=== PATIENT | male | born 1960 | race Asian ===

== ENCOUNTER 2020-06-13 07:41 | Inpatient (IN) | payer OTHER ==
[~2020-06-13] VITALS: Ht 167.6 cm; Wt 79.1 kg
[2020-06-13] VITALS (14 sets, daily range): BP systolic 128–226; BP diastolic 61–112
--- NOTE | 2020-06-13 07:42 | Emergency Room Report ---
History of Present Illness General Source: Patient, EMS Present Illness HPI Patient is a 60-year-old male presented for increased shortness of breath. Acute onset of symptoms. Prior history of end-stage renal disease. Patient reports being dialyzed on Monday. Denies any chest pain. Reports having no recent fever. Patient was brought in on nonrebreather by paramedics. He had been given 0.30 mg of epinephrine subcu. Allergies: Coded Allergies: No Known Allergies (Unverified , 06/13/20) Patient History Past Medical History: see triage record Reviewed Nursing Documentation: PMH: Agreed; PSxH: Agreed Review of Systems All Other Systems: limited - Limited by patient's acuity. 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 Total critical care time excluding procedures approximately 45 minutes. Medical Decision Making Diagnostic Impression: Primary Impression: Respiratory distress Additional Impressions: Fluid overload Suspected 2019-nCoV infection Non-STEMI (non-ST elevated myocardial infarction) Paroxysmal A-fib Hypertension ER Course Patient presented for shortness of breath. Differential diagnosis include was not limited to fluid overload, pulmonary edema, coronavirus infection, pneumonia among others. Because of complexity of patient's case laboratory tests and imaging studies were ordered. Patient noted to have a acute distress. Patient was started on supplemental oxygen via nonrebreather and subsequently started on BiPAP. He was given nitroglycerin sublingual with some improvement in shortness of breath.Patient's chest x-ray showed cardiomegaly as well as dialysis access catheter with fluid in the fissure as well as vascular congestion and pulmonary edema. Right-sided infiltrate greater than left. Patient is also given IV Lasix. Patient will be hospitalized for further management of shortness of breath likely will require dialysis. Patient noted to be markedly improved after nitroglycerin.Patient was given IV antibiotics. Patient had prior history of hypertension is normally on hydralazine, amlodipine, Lasix as well as as well as medications for his prostate. Patient's white blood count was slightly elevated approximate 14,000 patient be hospitalized for further management of shortness of breath and uncontrolled. Coronavirus testing was sent. Patient had continued elevated blood pressure.Patient's troponin was elevated consistent with possible non-STEMI. His repeat troponin was noted to be somewhat lower than initial troponin suggesting subacute myocardial injury. Patient was started on IV antibiotics due to infiltrates on chest x-ray. Dr. Gordon Wright was contacted for inpatient management due to panel physician. Labs Test 06/13/20 07:35 06/13/20 07:45 06/13/20 08:08 White Blood Count 14.9 K/UL (4.8-10.8) Red Blood Count 3.84 M/UL (4.70-6.10) Hemoglobin 11.3 G/DL (14.2-18.0) Hematocrit 36.7 % (42.0-52.0) Mean Corpuscular Volume 95 FL (80-99) Mean Corpuscular Hemoglobin 29.5 PG (27.0-31.0) Mean Corpuscular Hemoglobin Concent 30.9 G/DL (32.0-36.0) Red Cell Distribution Width 13.4 % (11.6-14.8) Platelet Count 222 K/UL (150-450) Mean Platelet Volume 6.4 FL (6.5-10.1) Neutrophils (%) (Auto) 71.7 % (45.0-75.0) Lymphocytes (%) (Auto) 17.9 % (20.0-45.0) Monocytes (%) (Auto) 7.9 % (1.0-10.0) Eosinophils (%) (Auto) 1.8 % (0.0-3.0) Basophils (%) (Auto) 0.7 % (0.0-2.0) Arterial Blood pH 7.319 (7.350-7.450) Arterial Blood Partial Pressure CO2 43.6 mmHg (35.0-45.0) Arterial Blood Partial Pressure O2 202.5 mmHg (75.0-100.0) Arterial Blood HCO3 21.9 mmol/L (22.0-26.0) Arterial Blood Oxygen Saturation 98.1 % (95-100) Arterial Blood Base Excess -4.0 (-2-2) Jose Test Positive EKG Diagnostic Results Rate: tachycardiac - Sinus tachycardia rate of 103 Rhythm: NSR ST Segments: no acute changes Status: improved Disposition: ADMITTED INPATIENT Condition: Stable Naseem Sams MD Jun 13, 2020 07:42
[2020-06-13] MEDS ORDERED: ADALAT10 MG ORAL (07:45)
[2020-06-13] MEDS: Nitroglycerin Subl 0.4mg tab SL PRN ×4 (07:45→08:00)
--- NOTE | 2020-06-13 07:50 | NUR ---
ED Nurse Note: pt arrived from home for SOB. pt 85% RA. 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 pt arrived diaphoretic, SOB, retractions substernal, intercostal. pt A&Ox4, skin warm but mottled. pt has R subclavian permacath, dilaysis monday/monday. pt states he is still able to make urine. pt has 2 IV, blood, cultures, lactic, covid swab sent to lab. blood glucose check 131. ekg performed. pt given 4 nitro SL. pt on continuous cardiac/O2 monitor. pt placed on bipap.
[2020-06-13 08:09] LABS: BASOPHILS % (AUTO) 0.7 % (0.0-2.0); EOSINOPHILS % (AUTO) 1.8 % (0.0-3.0); HEMATOCRIT 36.7 % (42.0-52.0); HEMOGLOBIN 11.3 G/DL (14.2-18.0); LYMPHOCYTES % (AUTO) 17.9 % (20.0-45.0); MEAN CORPUSCULAR VOLUME 95 FL (80-99); MONOCYTES % (AUTO) 7.9 % (1.0-10.0); NEUTROPHILS % (AUTO) 71.7 % (45.0-75.0); PLATELET COUNT 222 K/UL (150-450); RED BLOOD COUNT 3.84 M/UL (4.70-6.10); RED CELL DISTRIBUTION WIDTH 13.4 % (11.6-14.8); WHITE BLOOD COUNT 14.9 K/UL (4.8-10.8)
--- NOTE | 2020-06-13 08:30 | Diagnostic Imaging Report ---
EXAM: XR Chest, 1 View CLINICAL HISTORY: SOB TECHNIQUE: Frontal view of the chest. COMPARISON: No relevant prior studies available. FINDINGS/IMPRESSION: Dual-lumen central venous catheter terminates at the cavoatrial junction/right atrium. Patchy bilateral airspace consolidations, which preferentially involve the right mid and lower lung field. Findings are consistent with multifocal infiltrate. Bilateral, small pleural effusions with superimposed pulmonary vascular congestion. No pneumothorax. Cardiomegaly. Calcified aorta.
[2020-06-13] MEDS ORDERED: ELIQUIS5 MG ORAL (08:33)
[2020-06-13] MEDS ORDERED: COREG3.125 MG ORAL (08:33)
[2020-06-13] MEDS ORDERED: FUROSEMIDE80 M1 ORAL (08:33)
[2020-06-13] MEDS ORDERED: FLOMAX0.4 MG ORAL (08:33)
[2020-06-13] MEDS ORDERED: HYDRALAZINE HCL10 MG ORAL (08:33)
[2020-06-13 08:43] LABS: CALCIUM 7.9 MG/DL (8.5-10.1); CREATININE 13.3 MG/DL (0.55-1.30); POTASSIUM 3.7 MMOL/L (3.5-5.1)
[2020-06-13] MEDS ORDERED: Azithromycin 500 MG in NS 275 ML IV ONE (08:45)
[2020-06-13] MEDS ORDERED: cefTRIAXone 1 GM in NS 55 ML IVPB ONE (08:45)
[2020-06-13 09:00] LABS: ALBUMIN 3.9 G/DL (3.4-5.0); BILIRUBIN,TOTAL 0.6 MG/DL (0.2-1.0); CKMB 4.1 NG/ML (0.0-3.6); PHOSPHORUS 4.9 MG/DL (2.5-4.9)
[2020-06-13] MEDS ORDERED: Aspirin Baby 81mg ORAL ONE (09:00)
--- NOTE | 2020-06-13 09:49 | NUR ---
ED Nurse Note: repeat trop sent to lab. pt on continuous cardiac/O2 monitor.
--- NOTE | 2020-06-13 10:36 | NUR ---
per dr coles downgrade patient to sdu and have dialysis stat dr hartman and nursing superviosor notified
--- NOTE | 2020-06-13 12:11 | NUR ---
ED Nurse Note: called report to Monika BARRAZA in [place].
--- NOTE | 2020-06-13 12:23 | Cardiology Report ---
APPROVED REPORT EKG Measurement Heart [id number] <Conclusion> Sinus tachycardia Right superior axis deviation Abnormal ECG
[2020-06-13] MEDS ORDERED: Nitroglycerin Subl 0.4mg tab SL PRN (13:00)
[2020-06-13] MEDS ORDERED: Miralax 17gm pkt ORAL PRN (13:00)
--- NOTE | 2020-06-13 13:00 | NUR ---
NURSE NOTES: Received patient from emergency room via gurney accompanied by RN alert and oriented X4. Denies any pain and discomfort. Per patient he missed his dialysis because of SOB. Patient ambulatory with steady gait. Seen and examine by Dr. Wright at bedside. All orders noted and carried out.
[2020-06-13] MEDS: Tamsulosin 0.4mg cap ORAL SCH (14:00)
[2020-06-13] MEDS: Carvedilol 12.5mg tab ORAL SCH ×2 (14:01→21:00)
[2020-06-13 14:34] LABS: HEMATOCRIT 30.1 % (42.0-52.0); HEMOGLOBIN 9.3 G/DL (14.2-18.0); MEAN CORPUSCULAR VOLUME 95 FL (80-99); PLATELET COUNT 165 K/UL (150-450); RED BLOOD COUNT 3.16 M/UL (4.70-6.10); RED CELL DISTRIBUTION WIDTH 13.5 % (11.6-14.8); WHITE BLOOD COUNT 10.4 K/UL (4.8-10.8)
[2020-06-13] MEDS: Aspirin EC 81mg tab ORAL SCH (14:35)
[2020-06-13] MEDS ORDERED: Heparin 5000 units/ml inj IV SCH (14:45)
[2020-06-13] MEDS ORDERED: Heparin 25,000u/D5W 500ml 500 ML IV SCH (14:45)
[2020-06-13 14:54] LABS: CREATINE KINASE 272 U/L (26-308)
--- NOTE | 2020-06-13 14:59 | NUR ---
NURSE NOTES: Started on heparin drip per [facility] protocol. Given educational instruction.Ptt ordered at 2100.
--- NOTE | 2020-06-13 15:29 | History and Physical Report ---
DATE OF ADMISSION: 06/13/2020 CHIEF COMPLAINT AND REASON FOR HOSPITALIZATION: The patient is a 60-year-old man with end-stage renal disease, on dialysis, presents with shortness of breath and elevated troponin. HISTORY OF PRESENT ILLNESS: The patient has been on dialysis via catheter, usually takes out about 1.5 liters of fluid each time, presents with increasing shortness of breath since last night. He has had elevated troponin too. The patient has a history of end-stage renal disease, hypertension, BPH. ALLERGIES: None known. HOME MEDICATIONS: Apixaban, carvedilol, furosemide, hydralazine, nifedipine, tamsulosin. HABITS: He was an everyday smoker until about fall when he quit. SURGERIES: Dialysis catheter. SYSTEM REVIEW: HEAD, EYES, EARS, NOSE, AND THROAT: Vision and hearing is good. ENDOCRINE: No known diabetes or thyroid disease. PULMONARY: No asthma or TB. He is a former smoker. CARDIAC: See history of present illness. No prior chest pain or CHF. GASTROINTESTINAL: No GI bleeding or ulcers. GENITOURINARY: No dysuria, hematuria. NEUROLOGIC: No CVA or seizures. PHYSICAL EXAMINATION: GENERAL: The patient is an alert man, in no acute distress. VITAL SIGNS: Blood pressure 177/76, pulse 71, respirations 21, O2 sat 91 to 100. HEAD, EYES, EARS, NOSE, AND THROAT: Sclerae are nonicteric. Ocular motions intact in all directions. Oral mucosa moist. NECK: No adenopathy or thyroid enlargement. LUNGS: A few fine crackles at the bases. CHEST: She has a right PermCath. HEART: Regular rhythm. No murmur, gallop, or rub. ABDOMEN: Soft without organomegaly or masses. EXTREMITIES: 1+ leg edema. No cyanosis or clubbing NEUROLOGIC: He is alert, oriented. No focal findings. LABORATORY DATA: Important labs show white count of 14.9, hemoglobin 11.3, potassium 3.7, BUN 89, troponin 2.019, BNP 26,469. IMPRESSION: 1. End-stage renal disease. 2. Acute [id number] myocardial infarction. 3. Congestive heart failure, acute on chronic. 4. Hypertensive cardiovascular , on multiple medications. PLAN: Urgent dialysis, fluid removal, anti-ischemic therapy. Gordon Wright M.D. DR: DANIEL JOB#: [id number] CC:
--- NOTE | 2020-06-13 16:45 | Cardiac Electrophysiology PN ---
Subjective Subjective [id number] Objective Last 24 Hour Vital Signs Date Time Temp Pulse Resp B/P (MAP) Pulse Ox O2 Delivery O2 Flow Rate FiO2 06/13/20 14:02 70 151/78 06/13/20 14:01 70 151/78 06/13/20 13:15 Nasal Cannula 1.0 06/13/20 12:41 97.7 70 18 151/78 (102) 92 06/13/20 12:12 71 21 177/76 100 Room Air 06/13/20 12:00 97.6 65 21 162/88 100 Bi-pap 15.0 55 06/13/20 10:54 65 21 162/88 100 Bi-pap 06/13/20 10:35 86 24 100 55 06/13/20 10:27 69 19 167/83 100 Bi-pap 55 06/13/20 09:48 78 21 180/74 100 Bi-pap 70 06/13/20 09:06 222/111 06/13/20 08:50 89 27 222/99 100 Bi-pap 06/13/20 08:45 90 25 216/94 100 Bi-pap 06/13/20 08:38 70 06/13/20 08:31 86 27 90 90 06/13/20 08:05 90 23 179/88 100 Non-Rebreather 15.0 06/13/20 08:00 91 26 205/90 100 Non-Rebreather 15.0 06/13/20 08:00 205/99 06/13/20 07:55 96 31 199/97 100 Non-Rebreather 15.0 06/13/20 07:55 199/97 06/13/20 07:51 99 31 210/108 100 Non-Rebreather 15.0 06/13/20 07:50 99 31 Bi-pap 15.0 100 06/13/20 07:50 210/108 06/13/20 07:45 97.6 105 30 226/112 99 Non-Rebreather 15.0 06/13/20 07:45 226/112 06/13/20 07:38 97.9 115 26 148/115 (126) 90 Room Air Laboratory Tests Test 06/13/20 07:35 06/13/20 07:45 06/13/20 08:08 06/13/20 09:43 Troponin I 2.019 ng/mL (0.000-0.056) 1.873 ng/mL (0.000-0.056) White Blood Count 14.9 K/UL (4.8-10.8) H Red Blood Count 3.84 M/UL (4.70-6.10) L Hemoglobin 11.3 G/DL (14.2-18.0) L Hematocrit 36.7 % (42.0-52.0) L Mean Corpuscular Volume 95 FL (80-99) Mean Corpuscular Hemoglobin 29.5 PG (27.0-31.0) Mean Corpuscular Hemoglobin Concent 30.9 G/DL (32.0-36.0) L Red Cell Distribution Width 13.4 % (11.6-14.8) Platelet Count 222 K/UL (150-450) Mean Platelet Volume 6.4 FL (6.5-10.1) L Neutrophils (%) (Auto) 71.7 % (45.0-75.0) Lymphocytes (%) (Auto) 17.9 % (20.0-45.0) L Monocytes (%) (Auto) 7.9 % (1.0-10.0) Eosinophils (%) (Auto) 1.8 % (0.0-3.0) Basophils (%) (Auto) 0.7 % (0.0-2.0) Prothrombin Time 10.7 SEC (9.30-11.50) Prothromb Time International Ratio 1.0 (0.9-1.1) Activated Partial Thromboplast Time 33 SEC (23-33) D-Dimer 0.87 mg/L FEU (0.00-0.49) H Sodium Level 143 MMOL/L (136-145) Potassium Level 3.7 MMOL/L (3.5-5.1) Chloride Level 103 MMOL/L (98-107) Carbon Dioxide Level 23 MMOL/L (21-32) Anion Gap 17 mmol/L (5-15) H Blood Urea Nitrogen 89 mg/dL (7-18) H Creatinine 13.3 MG/DL (0.55-1.30) H Estimat Glomerular Filtration Rate 3.9 mL/min (>60) Glucose Level 173 MG/DL (74-106) H Lactic Acid Level 1.90 mmol/L (0.4-2.0) Calcium Level 7.9 MG/DL (8.5-10.1) L Phosphorus Level 4.9 MG/DL (2.5-4.9) Magnesium Level 2.4 MG/DL (1.8-2.4) Ferritin 1322 NG/ML (8-388) H Total Bilirubin 0.6 MG/DL (0.2-1.0) Aspartate Amino Transf (AST/SGOT) 16 U/L (15-37) Alanine Aminotransferase (ALT/SGPT) 20 U/L (12-78) Alkaline Phosphatase 67 U/L (46-116) Lactate Dehydrogenase 318 U/L (81-234) H Total Creatine Kinase 261 U/L (26-308) Creatine Kinase MB 4.1 NG/ML (0.0-3.6) H Creatine Kinase MB Relative Index 1.5 C-Reactive Protein, Quantitative 1.4 mg/dL (0.00-0.90) H Pro-B-Type Natriuretic Peptide 65386 pg/mL (0-125) H Total Protein 7.9 G/DL (6.4-8.2) Albumin 3.9 G/DL (3.4-5.0) Globulin 4.0 g/dL Albumin/Globulin Ratio 1.0 (1.0-2.7) Lipase 358 U/L (73-393) Arterial Blood pH 7.319 (7.350-7.450) Arterial Blood Partial Pressure CO2 43.6 mmHg (35.0-45.0) Arterial Blood Partial Pressure O2 202.5 mmHg (75.0-100.0) H Arterial Blood HCO3 21.9 mmol/L (22.0-26.0) L Arterial Blood Oxygen Saturation 98.1 % (95-100) Arterial Blood Base Excess -4.0 (-2-2) L Jose Test Positive Test 06/13/20 14:20 White Blood Count 10.4 K/UL (4.8-10.8) Red Blood Count 3.16 M/UL (4.70-6.10) L Hemoglobin 9.3 G/DL (14.2-18.0) L Hematocrit 30.1 % (42.0-52.0) L Mean Corpuscular Volume 95 FL (80-99) Mean Corpuscular Hemoglobin 29.4 PG (27.0-31.0) Mean Corpuscular Hemoglobin Concent 30.9 G/DL (32.0-36.0) L Red Cell Distribution Width 13.5 % (11.6-14.8) Platelet Count 165 K/UL (150-450) Mean Platelet Volume 6.2 FL (6.5-10.1) L Neutrophils (%) (Auto) % (45.0-75.0) Lymphocytes (%) (Auto) % (20.0-45.0) Monocytes (%) (Auto) % (1.0-10.0) Eosinophils (%) (Auto) % (0.0-3.0) Basophils (%) (Auto) % (0.0-2.0) Differential Total Cells Counted 100 Neutrophils % (Manual) 90 % (45-75) H Lymphocytes % (Manual) 4 % (20-45) L Monocytes % (Manual) 6 % (1-10) Eosinophils % (Manual) 0 % (0-3) Basophils % (Manual) 0 % (0-2) Band Neutrophils 0 % (0-8) Platelet Estimate Adequate Platelet Morphology Normal Hypochromasia 1+ Activated Partial Thromboplast Time 32 SEC (23-33) Total Creatine Kinase 272 U/L (26-308) Imtiaz Roblero MD Jun 13, 2020 16:45
[2020-06-13] MEDS: Imdur 30mg tab ORAL SCH (17:24)
[2020-06-13] MEDS: Losartan 50mg tab ORAL SCH (17:25)
--- NOTE | 2020-06-13 19:06 | NUR ---
NURSE HAND-OFF REPORT: Important Events on Shift:none Patient Status: full code Diet: renal diet Pending Orders: Pending Results/Labs: Pending MD notification: Latest Vital Signs: Temperature 97.7 , Pulse 69 , B/P 136 /79 , Respiratory Rate 20 , O2 SAT 99 , Room Air, O2 Flow Rate 1.0 . Vital Sign Comment: EKG Rhythm: Sinus Rhythm Rhythm change?: N MD Notified?: - MD Response: Latest Pimentel Fall Score: 35 Fall Risk: Medium Risk Safety Measures: Call light Within Reach, Bed Alarm Zone 1, Side Rails Side Rails x1, Bed position Low and Locked. Fall Precautions: Yellow Socks Door Sign Patient Fall Education Report given to Abigail Amador.
--- NOTE | 2020-06-13 19:20 | NUR ---
NURSE NOTES: Received patient from Monika Chávez RN. Patient in bed A/A/OX4 Respiration even and unlabored on RA saturating at 96%Denies pain or discomfort. NSR on monitoring manager. Ambulating to bathroom slowly but steady on feet. Voiding clear yellow urine. In no apparent distress. Bed in lowest position with side rails up x2. Will continue POC
--- NOTE | 2020-06-13 21:44 | Consultation ---
DATE OF CONSULTATION: 06/13/2020 CARDIOLOGY CONSULTATION CONSULTING PHYSICIAN: Imtiaz Roblero M.D. REFERRING PHYSICIAN: Gordon Wright M.D. REASON FOR CONSULTATION: Congestive heart failure and elevated troponin. HISTORY OF PRESENT ILLNESS: The patient is a 60-year-old gentleman with history of hypertension and end-stage renal disease, was brought to the emergency room for increasing shortness of breath. The patient is usually dialyzed on Monday, Monday, and Monday. The patient was brought in by paramedics on non-rebreather face mask. The patient received 0.3 mg of epinephrine subcutaneous. The patient's troponin was elevated and a Cardiology consultation was obtained for further evaluation. REVIEW OF SYSTEMS: Negative other than what was mentioned in the history of present illness. PAST MEDICAL HISTORY: 1. Hypertension. 2. Paroxysmal atrial fibrillation. 3. Congestive heart failure. 4. End-stage renal disease, on hemodialysis. PHYSICAL EXAMINATION: VITAL SIGNS: Show blood pressure of 151/78, pulse is 70, respirations 18, and temperature 97.7. HEAD AND NECK: Shows no JVD. LUNGS: Coarse rhonchi. CARDIOVASCULAR: Shows regular S1 and S2 with no gallop. ABDOMEN: Soft. EXTREMITIES: No pitting edema. LABORATORY AND DIAGNOSTIC DATA: His labs show white count of 10.4, hemoglobin 9.7, hematocrit of 30, and platelet count is 165,000. Sodium 142, potassium 3.7, BUN of 89, creatinine of 13.3, and glucose of 170. Troponin is 2.0 and 1.73. BNP is 26,000. ASSESSMENT AND PLAN: 1. Elevated troponin more than 2 in this patient with history of hypertension. The patient however has end-stage renal disease, on hemodialysis. The patient currently does not have any chest pain. His echocardiogram showed ejection fraction of 60%. His EKG also shows sinus rhythm with lateral T-wave inversion. At this time, we will treat the patient for non-ST elevation [place] with Lipitor 80 mg daily, Imdur 30 mg daily, aspirin 81 mg daily, and Coreg 12.5 mg b.i.d. 2. Hypertension. Continue Coreg, Isordil, and hemodialysis as well as Procardia XL 90 mg daily. 3. Volume overload with congestive heart failure. Echocardiogram showed normal ejection fraction. It is of note that the patient is also on losartan 100 mg daily. 4. End-stage renal disease, on hemodialysis per Dr. Wright. Thank you very much for allowing me to participate in the care of this patient. Please do not hesitate to contact me for any questions regarding my evaluation. Imtiaz Roblero M.D. DR: STEVEN JOB#: [id number] CC:
--- NOTE | 2020-06-13 23:00 | NUR ---
NURSE NOTES: HD in progress.
[2020-06-13] MEDS: Atorvastatin 80mg tab ORAL SCH (23:30)
[2020-06-14] VITALS: BP 127/64
[2020-06-14 04:00] VITALS: BP 137/83
--- NOTE | 2020-06-14 05:00 | NUR ---
NURSE NOTES: Patient still sleeping at this time. Easily verbally awakened. Respirations even and unlabored. Denies pain or discomfort. VSS Afebrile. In no apparent distress. Remain NSR on cardiac tech. No new orders noted.
[2020-06-14 06:59] LABS: BASOPHILS % (AUTO) 0.8 % (0.0-2.0); EOSINOPHILS % (AUTO) 2.1 % (0.0-3.0); HEMATOCRIT 27.1 % (42.0-52.0); HEMOGLOBIN 8.6 G/DL (14.2-18.0); LYMPHOCYTES % (AUTO) 20.9 % (20.0-45.0); MEAN CORPUSCULAR VOLUME 94 FL (80-99); MONOCYTES % (AUTO) 10.5 % (1.0-10.0); NEUTROPHILS % (AUTO) 65.7 % (45.0-75.0); PLATELET COUNT 155 K/UL (150-450); RED BLOOD COUNT 2.87 M/UL (4.70-6.10); RED CELL DISTRIBUTION WIDTH 13.6 % (11.6-14.8); WHITE BLOOD COUNT 7.2 K/UL (4.8-10.8)
[2020-06-14 07:31] LABS: ANION GAP 11 mmol/L (5-15); BLOOD UREA NITROGEN 54 mg/dL (7-18); CALCIUM 7.8 MG/DL (8.5-10.1); CARBON DIOXIDE 29 MMOL/L (21-32); CHLORIDE 105 MMOL/L (98-107); CHOLESTEROL 135 MG/DL (< 200); CREATININE 9.3 MG/DL (0.55-1.30); HDL CHOLESTEROL 55 MG/DL (40-60); POTASSIUM 3.1 MMOL/L (3.5-5.1); SODIUM 145 MMOL/L (136-145); TRIGLYCERIDES 83 MG/DL (30-150)
--- NOTE | 2020-06-14 08:00 | NUR ---
NURSE NOTES: Received patient awake alert and oriented denies any pain discomfort. On heparin drip @ 12 units running at 18.94ml/hr. No bleeding noted.
[2020-06-14 08:19] VITALS: BP 130/61
[2020-06-14] MEDS: Tamsulosin 0.4mg cap ORAL SCH (08:23)
[2020-06-14] MEDS: Losartan 50mg tab ORAL SCH (08:23)
[2020-06-14] MEDS: Aspirin EC 81mg tab ORAL SCH (08:23)
[2020-06-14] MEDS: Carvedilol 12.5mg tab ORAL SCH ×2 (08:23→20:31)
[2020-06-14] MEDS: Imdur 30mg tab ORAL SCH (08:23)
[2020-06-14] MEDS ORDERED: Heparin 5000 units/ml inj IV SCH (11:00)
[2020-06-14] MEDS: Heparin 25,000u/D5W 500ml 500 ML IV SCH ×2 (11:10→15:56)
--- NOTE | 2020-06-14 11:10 | NUR ---
NURSE NOTES: Aptt 44. Bolus 6500 IV of heparin given and changed heparin at 16 units/hr. Next aptt. 1600. No bleeding noted.
[2020-06-14 12:00] VITALS: BP 131/63
[2020-06-14] MEDS ORDERED: Heparin Sod 1000 units/ml 10ml IV ONE (13:00)
--- NOTE | 2020-06-14 15:28 | Cardiac Electrophysiology PN ---
Assessment/Plan Assessment/Plan 1. Elevated troponin more than 2 in this patient with history of hypertension. The patient however has end-stage renal disease, on hemodialysis. The patient currently does not have any chest pain. His echocardiogram showed ejection fraction of 60%. His EKG also shows sinus rhythm with lateral T-wave inversion. At this time, we will treat the patient for non-ST elevation [place] with Lipitor 80 mg daily, Imdur 30 mg daily, aspirin 81 mg daily, and Coreg 12.5 mg b.i.d. Repeat Troponin and ECG in am. 2. Hypertension. Continue Coreg, Isordil, losartan 100 mg daily, Procardia XL 90 mg daily and HD 3. Volume overload with congestive heart failure. Echocardiogram showed normal ejection fraction. 4. End-stage renal disease, on hemodialysis per Dr. Wright. Subjective Subjective Being ruled out for Covid on 2 liter NC. Troponin increased to 2.5. On heparin drip. No CP Objective Last 24 Hour Vital Signs Date Time Temp Pulse Resp B/P (MAP) Pulse Ox O2 Delivery O2 Flow Rate FiO2 06/14/20 12:00 98.5 64 21 131/63 (85) 94 06/14/20 12:00 64 06/14/20 08:59 74 06/14/20 08:56 Nasal Cannula 1.0 06/14/20 08:23 130/61 06/14/20 08:23 130/61 06/14/20 08:23 70 130/61 06/14/20 08:22 70 130/61 06/14/20 08:19 98.1 70 18 130/61 (84) 93 06/14/20 04:00 97.7 72 18 137/83 (101) 92 06/14/20 04:00 66 06/14/20 04:00 Nasal Cannula 1.0 06/14/20 01:00 98.1 06/14/20 00:00 73 06/14/20 00:00 Nasal Cannula 1.0 06/14/20 00:00 98.1 69 18 127/64 (85) 94 06/13/20 21:00 60 128/61 06/13/20 20:00 97.9 60 18 128/61 (83) 96 06/13/20 20:00 Nasal Cannula 1.0 06/13/20 17:49 69 06/13/20 17:25 136/79 06/13/20 17:24 136/79 06/13/20 16:47 97.7 72 20 136/79 (98) 99 06/13/20 16:30 Nasal Cannula 1.0 Intake and Output 06/13/20 06/14/20 19:00 07:00 Intake Total 81.315 ml 189.840 ml Output Total 1000 ml 2500 ml Balance -918.685 ml -2310.160 ml Intake Oral 0 ml IV Total 81.315 ml 189.840 ml Output Urine Total 1000 ml 500 ml Hemodialysis UF 2000 ml Laboratory Tests Test 06/13/20 20:53 06/14/20 04:14 06/14/20 09:00 06/14/20 15:00 Activated Partial Thromboplast Time 65 SEC (23-33) H 44 SEC (23-33) H White Blood Count 7.2 K/UL (4.8-10.8) Red Blood Count 2.87 M/UL (4.70-6.10) L Hemoglobin 8.6 G/DL (14.2-18.0) L Hematocrit 27.1 % (42.0-52.0) L Mean Corpuscular Volume 94 FL (80-99) Mean Corpuscular Hemoglobin 30.0 PG (27.0-31.0) Mean Corpuscular Hemoglobin Concent 31.8 G/DL (32.0-36.0) L Red Cell Distribution Width 13.6 % (11.6-14.8) Platelet Count 155 K/UL (150-450) Mean Platelet Volume 6.4 FL (6.5-10.1) L Neutrophils (%) (Auto) 65.7 % (45.0-75.0) Lymphocytes (%) (Auto) 20.9 % (20.0-45.0) Monocytes (%) (Auto) 10.5 % (1.0-10.0) H Eosinophils (%) (Auto) 2.1 % (0.0-3.0) Basophils (%) (Auto) 0.8 % (0.0-2.0) Sodium Level 145 MMOL/L (136-145) Potassium Level 3.1 MMOL/L (3.5-5.1) L Chloride Level 105 MMOL/L (98-107) Carbon Dioxide Level 29 MMOL/L (21-32) Anion Gap 11 mmol/L (5-15) Blood Urea Nitrogen 54 mg/dL (7-18) H Creatinine 9.3 MG/DL (0.55-1.30) H Estimat Glomerular Filtration Rate 5.8 mL/min (>60) Glucose Level 86 MG/DL (74-106) Calcium Level 7.8 MG/DL (8.5-10.1) L Troponin I 2.536 ng/mL (0.000-0.056) Pending Triglycerides Level 83 MG/DL (30-150) Cholesterol Level 135 MG/DL (< 200) LDL Cholesterol 72 mg/dL (<100) HDL Cholesterol 55 MG/DL (40-60) Cholesterol/HDL Ratio 2.5 (3.3-4.4) L Thyroid Stimulating Hormone (TSH) 0.570 uiU/mL (0.358-3.740) Hepatitis B Surface Antigen Pending Objective HEAD AND NECK: Shows no JVD. LUNGS: Coarse rhonchi. CARDIOVASCULAR: Shows regular S1 and S2 with no gallop. ABDOMEN: Soft. EXTREMITIES: No pitting edema. Imtiaz Roblero MD Jun 14, 2020 15:28
[2020-06-14 16:16] VITALS: BP 129/70
[2020-06-14] MEDS ORDERED: Heparin 25,000u/D5W 500ml 500 ML IV SCH (18:15)
--- NOTE | 2020-06-14 18:15 | Nephrology Progress Note ---
Assessment/Plan Plan #ESRD on HD #Elevated troponin #NSTEMI #HTN #volume overload - HD tomorrow - heparin drip - serial trop - 2d echo - cardiology eval - continue coreg - monitor lytes - BP control Tiime spent 65 min Subjective ROS Limited/Unobtainable: No Constitutional: Reports: weakness HEENT: Denies: no symptoms, eye pain, blurred vision, tearing, double vision, ear pain, ear discharge, nose pain, nose congestion, throat pain, throat swelling, mouth pain, mouth swelling, other Genitourinary: Denies: no symptoms, burning, discharge, frequency, flank pain, hematuria, incontinence, pain, urgency, other Neurologic/Psychiatric: Denies: no symptoms, anxiety, depressed, emotional problems, headache, numbness, paresthesia, pre-existing deficit, seizure, tingling, tremors, weakness, other Subjective no chest pain troponin rising on heparin drip HD tomorow Objective Objective Last 24 Hour Vital Signs Date Time Temp Pulse Resp B/P (MAP) Pulse Ox O2 Delivery O2 Flow Rate FiO2 06/14/20 16:16 97.2 64 20 129/70 (89) 93 06/14/20 16:15 Nasal Cannula 1.0 06/14/20 16:09 70 06/14/20 12:00 98.5 64 21 131/63 (85) 94 06/14/20 12:00 Nasal Cannula 1.0 06/14/20 12:00 64 06/14/20 08:59 74 06/14/20 08:56 Nasal Cannula 1.0 06/14/20 08:23 130/61 06/14/20 08:23 130/61 06/14/20 08:23 70 130/61 06/14/20 08:22 70 130/61 06/14/20 08:19 98.1 70 18 130/61 (84) 93 06/14/20 04:00 97.7 72 18 137/83 (101) 92 06/14/20 04:00 66 06/14/20 04:00 Nasal Cannula 1.0 06/14/20 01:00 98.1 06/14/20 00:00 73 06/14/20 00:00 Nasal Cannula 1.0 06/14/20 00:00 98.1 69 18 127/64 (85) 94 06/13/20 21:00 60 128/61 06/13/20 20:00 97.9 60 18 128/61 (83) 96 06/13/20 20:00 Nasal Cannula 1.0 Intake and Output 06/13/20 06/14/20 19:00 07:00 Intake Total 81.315 ml 189.840 ml Output Total 1000 ml 2500 ml Balance -918.685 ml -2310.160 ml Intake Oral 0 ml IV Total 81.315 ml 189.840 ml Output Urine Total 1000 ml 500 ml Hemodialysis UF 2000 ml Laboratory Tests 06/13/20 20:53: Activated Partial Thromboplast Time 65H 06/14/20 04:14: White Blood Count 7.2, Red Blood Count 2.87L, Hemoglobin 8.6L, Hematocrit 27.1L, Mean Corpuscular Volume 94, Mean Corpuscular Hemoglobin 30.0, Mean Corpuscular Hemoglobin Concent 31.8L, Red Cell Distribution Width 13.6, Platelet Count 155, Mean Platelet Volume 6.4L, Neutrophils (%) (Auto) 65.7, Lymphocytes (%) (Auto) 20.9, Monocytes (%) (Auto) 10.5H, Eosinophils (%) (Auto) 2.1, Basophils (%) (Auto) 0.8, Sodium Level 145, Potassium Level 3.1L, Chloride Level 105, Carbon Dioxide Level 29, Anion Gap 11, Blood Urea Nitrogen 54H, Creatinine 9.3H, Estimat Glomerular Filtration Rate 5.8, Glucose Level 86, Calcium Level 7.8L, Troponin I 2.536H, Triglycerides Level 83, Cholesterol Level 135, LDL Cholesterol 72, HDL Cholesterol 55, Cholesterol/HDL Ratio 2.5L, Thyroid Stimulating Hormone (TSH) 0.570, Hepatitis B Surface Antigen [Pending] 06/14/20 09:00: Activated Partial Thromboplast Time 44H 06/14/20 15:00: Troponin I 2.379H 06/14/20 17:30: Activated Partial Thromboplast Time 99H Height (Feet): 5 Height (Inches): 6.00 Weight (Pounds): 168 General Appearance: no apparent distress EENT: PERRL/EOMI, normal ENT inspection Neck: non-tender, normal alignment Cardiovascular: normal peripheral pulses, regular rhythm Respiratory/Chest: chest wall non-tender, lungs clear Abdomen: normal bowel sounds, non tender Genitourinary/Rectal: normal rectal exam Extremities: non-tender Deborah Drake M.D. Jun 14, 2020 18:09
--- NOTE | 2020-06-14 18:21 | NUR ---
NURSE NOTES: Aptt 99. Changed rate 14 units/hr. No sign and symptoms of bleeding.
--- NOTE | 2020-06-14 19:02 | NUR ---
NURSE HAND-OFF REPORT: Important Events on Shift:n Patient Status:full code Diet: renal diet Pending Orders:none Pending Results/Labs:y Pending MD notification:n Latest Vital Signs: Temperature 97.2 , Pulse 64 , B/P 129 /70 , Respiratory Rate 20 , O2 SAT 93 , Room Air, O2 Flow Rate 1.0 . Vital Sign Comment:stable EKG Rhythm: Sinus Rhythm Rhythm change?: N MD Notified?: - MD Response: Latest Pimentel Fall Score: 35 Fall Risk: Medium Risk Safety Measures: Call light Within Reach, Bed Alarm Zone 1, Side Rails Side Rails x1, Bed position Low and Locked. Fall Precautions: Yellow Socks Door Sign Patient Fall Education Report given to Tina PATTON.
--- NOTE | 2020-06-14 19:05 | NUR ---
NURSE NOTES: Received pt in bed, awake, alert, oriented, on room air not showing any signs of distress. Left hand #20 intact with Heparin infusing at 14cc/hr. Permacath on right chest intact,. Pt denies any chest pain or any discomfort. Pt independent and is able to ambulate to the bathronn with steady gait. VSS and pt is SR on the monitor.
[2020-06-14 20:00] VITALS: BP 139/76
[2020-06-14] MEDS: Atorvastatin 80mg tab ORAL SCH (20:31)
[2020-06-15] VITALS: BP 131/64
--- NOTE | 2020-06-15 | NUR ---
NURSE NOTES: Pt remains stable and asymptomatic. No signs of bleeding noted. VSS
[2020-06-15] MEDS ORDERED: Heparin 5000 units/ml inj IV SCH (01:00)
--- NOTE | 2020-06-15 01:00 | NUR ---
NURSE NOTES: Spoke to José Luis of Pharmacy re latest PTT of 60. Orders noted and will be carried out.
[2020-06-15] MEDS: Heparin 25,000u/D5W 500ml 500 ML IV SCH ×3 (01:23→12:46)
--- NOTE | 2020-06-15 04:00 | NUR ---
NURSE NOTES: Pt remains stable and asymptomatic. Pt does not have any signs of bleeding. Pt remains SR on the monitor.
[2020-06-15 06:00] VITALS: BP 127/69
[2020-06-15 06:45] LABS: EOSINOPHILS % (AUTO) 2.4 % (0.0-3.0); HEMATOCRIT 25.9 % (42.0-52.0); HEMOGLOBIN 8.2 G/DL (14.2-18.0); LYMPHOCYTES % (AUTO) 21.2 % (20.0-45.0); MEAN CORPUSCULAR VOLUME 95 FL (80-99); MONOCYTES % (AUTO) 10.4 % (1.0-10.0); PLATELET COUNT 144 K/UL (150-450); RED BLOOD COUNT 2.73 M/UL (4.70-6.10); RED CELL DISTRIBUTION WIDTH 13.9 % (11.6-14.8)
--- NOTE | 2020-06-15 07:15 | NUR ---
NURSE HAND-OFF REPORT: Important Events on Shift: Patient Status: Diet: Pending Orders: Pending Results/Labs: Pending MD notification: Latest Vital Signs: Temperature 97.9 , Pulse 66 , B/P 127 /69 , Respiratory Rate 20 , O2 SAT 93 , Room Air, O2 Flow Rate 1.0 . Vital Sign Comment: EKG Rhythm: Sinus Rhythm Rhythm change?: N MD Notified?: - MD Response: Latest Pimentel Fall Score: 35 Fall Risk: Medium Risk Safety Measures: Call light Within Reach, Bed Alarm Zone 1, Side Rails Side Rails x1, Bed position Low and Locked. Fall Precautions: Yellow Socks Door Sign Patient Fall Education Report given to CHRISTI Rain.
[2020-06-15 07:27] LABS: CALCIUM 7.6 MG/DL (8.5-10.1); CREATININE 11.1 MG/DL (0.55-1.30); PHOSPHORUS 4.5 MG/DL (2.5-4.9)
--- NOTE | 2020-06-15 07:30 | NUR ---
NURSE NOTES: Received report from CHRISTI Saldana. Pt is lying in bed, awake alert oriented. Pt complained of only sleeping 1 hour. Not in acute distress, on room air. SR on the quality assurance monitor. on renal diet. For dialysis today. Lab contacted me about the troponin level, informed Dr Roblero. result is trending down. Recent labs, medication and MD orders reviewed. Bed is locked and in lowest position, bed alarm on, call light is with the pt. Will continue to closely monitor pt. Will continue with the plan of care.
[2020-06-15 08:00] VITALS: BP 144/72
[2020-06-15] MEDS: Carvedilol 12.5mg tab ORAL SCH ×2 (08:58→20:21)
[2020-06-15] MEDS: Losartan 50mg tab ORAL SCH (08:59)
[2020-06-15] MEDS: Imdur 30mg tab ORAL SCH ×2 (09:00→14:35)
[2020-06-15] MEDS: Aspirin EC 81mg tab ORAL SCH (09:02)
[2020-06-15] MEDS: Tamsulosin 0.4mg cap ORAL SCH (09:02)
--- NOTE | 2020-06-15 09:35 | NUR ---
NURSE NOTES: aPTT is 104. Pharmacist informed. Heparin dose changed to 14 units/kg/hr, 22.148 mL/hr. Will continue to monitor pt.
--- NOTE | 2020-06-15 11:05 | NUR ---
CASE MANAGEMENT:REVIEW 60 YR OLD MALE WALKED INTO ER CC: SOB PMH: ESRD W/F. MISSED DIALYSIS SI: RESPIRATORY DISTRESS. AFIB NSTEMI. FLUID OVERLOAD 97.8 115 31 226/112 90% ON RA TROPONIN(+) 2.019 WBC+14.9 D-DIMER+0.87 BUN+89 CR+13.3 IS: PLACED ON 15L/NRB ASA PO X1 IV AZITHROMYCIN X1 IV ROCEPHIN X1 IV LASIX X1 CHEST XRAY BLOOD CX : TO STEP DOWN UNIT DCP: RETURN TO [facility]
[2020-06-15 12:00] VITALS: BP 174/83
--- NOTE | 2020-06-15 12:13 | NUR ---
NURSE NOTES: Dialysis is being done. Will continue to closely monitor pt.
--- NOTE | 2020-06-15 14:30 | NUR ---
NURSE NOTES: Dr. Roblero made bedside rounds and ordered to discontinue the heparin drip. Ordered carried out. Will continue to monitor pt.
--- NOTE | 2020-06-15 14:45 | Cardiac Electrophysiology PN ---
Assessment/Plan Assessment/Plan 1. Elevated troponin more than 2 in this patient with history of hypertension. The patient however is on hemodialysis. The patient currently does not have any chest pain. His echocardiogram showed ejection fraction of 60%. His EKG also shows sinus rhythm with lateral T-wave inversion. At this time, we will treat the patient for non-ST elevation NC with Lipitor 80 mg daily, Imdur 30 mg daily, aspirin 81 mg daily, and Coreg 12.5 mg b.i.d. DC heparin drip as Troponin is down 2. Hypertension. Continue Coreg, Isordil, losartan 100 mg daily, Procardia XL 90 mg daily and HD 3. Volume overload with congestive heart failure. Echocardiogram showed normal ejection fraction. 4. End-stage renal disease, on hemodialysis per Dr. Wright. Subjective Subjective Being ruled out for Covid on 2 liter NC. Troponin down to 2.1. On heparin drip. No CP Objective Last 24 Hour Vital Signs Date Time Temp Pulse Resp B/P (MAP) Pulse Ox O2 Delivery O2 Flow Rate FiO2 06/15/20 14:35 190/90 06/15/20 12:00 Nasal Cannula 1.0 06/15/20 12:00 66 06/15/20 12:00 97.7 66 20 174/83 (113) 93 06/15/20 08:58 66 144/72 06/15/20 08:00 64 06/15/20 08:00 Nasal Cannula 1.0 06/15/20 08:00 97.3 66 18 144/72 (96) 93 06/15/20 06:00 97.9 66 20 127/69 (88) 93 06/15/20 04:00 Nasal Cannula 1.0 06/15/20 04:00 66 06/15/20 00:00 67 06/15/20 00:00 97.9 66 20 131/64 (86) 92 06/15/20 00:00 Nasal Cannula 1.0 06/14/20 20:31 69 139/76 06/14/20 20:00 Nasal Cannula 1.0 06/14/20 20:00 68 06/14/20 20:00 98.1 69 20 139/76 (97) 94 06/14/20 16:16 97.2 64 20 129/70 (89) 93 06/14/20 16:15 Nasal Cannula 1.0 06/14/20 16:09 70 Intake and Output 06/14/20 06/15/20 19:00 07:00 Intake Total 1007.516 ml 999.736 ml Output Total 1100 ml Balance 1007.516 ml -100.264 ml Intake Oral 740 ml 750 ml IV Total 267.516 ml 249.736 ml Output Urine Total 1100 ml # Bowel Movements 2 Laboratory Tests Test 06/14/20 15:00 06/14/20 17:30 06/15/20 00:20 06/15/20 04:00 Troponin I 2.379 ng/mL (0.000-0.056) 2.114 ng/mL (0.000-0.056) Activated Partial Thromboplast Time 99 SEC (23-33) H 60 SEC (23-33) H White Blood Count 7.0 K/UL (4.8-10.8) Red Blood Count 2.73 M/UL (4.70-6.10) L Hemoglobin 8.2 G/DL (14.2-18.0) L Hematocrit 25.9 % (42.0-52.0) L Mean Corpuscular Volume 95 FL (80-99) Mean Corpuscular Hemoglobin 30.1 PG (27.0-31.0) Mean Corpuscular Hemoglobin Concent 31.7 G/DL (32.0-36.0) L Red Cell Distribution Width 13.9 % (11.6-14.8) Platelet Count 144 K/UL (150-450) L Mean Platelet Volume 7.6 FL (6.5-10.1) Neutrophils (%) (Auto) 65.0 % (45.0-75.0) Lymphocytes (%) (Auto) 21.2 % (20.0-45.0) Monocytes (%) (Auto) 10.4 % (1.0-10.0) H Eosinophils (%) (Auto) 2.4 % (0.0-3.0) Basophils (%) (Auto) 1.0 % (0.0-2.0) Sodium Level 144 MMOL/L (136-145) Potassium Level 4.0 MMOL/L (3.5-5.1) Chloride Level 104 MMOL/L (98-107) Carbon Dioxide Level 29 MMOL/L (21-32) Anion Gap 11 mmol/L (5-15) Blood Urea Nitrogen 64 mg/dL (7-18) H Creatinine 11.1 MG/DL (0.55-1.30) H Estimat Glomerular Filtration Rate 4.8 mL/min (>60) Glucose Level 79 MG/DL (74-106) Calcium Level 7.6 MG/DL (8.5-10.1) L Phosphorus Level 4.5 MG/DL (2.5-4.9) Magnesium Level 2.7 MG/DL (1.8-2.4) H Test 06/15/20 07:44 Activated Partial Thromboplast Time 104 SEC (23-33) H Microbiology Date/Time Source Procedure Growth Status 06/13/20 12:21 Rectum VRE Culture - Final NO VANCOMYCIN RESISTANT ENTEROCOCCUS ... Complete 06/13/20 12:21 Nasal Nares MRSA Culture - Final NO METHICILLIN RESISTANT STAPH AUREUS... Complete 06/13/20 07:35 Blood Blood Culture - Preliminary NO GROWTH AFTER 24 HOURS Resulted 06/13/20 07:35 Blood Blood Culture - Preliminary NO GROWTH AFTER 24 HOURS Resulted Objective HEAD AND NECK: Shows no JVD. LUNGS: Coarse rhonchi. CARDIOVASCULAR: Shows regular S1 and S2 with no gallop. ABDOMEN: Soft. EXTREMITIES: No pitting edema. Imtiaz Roblero MD Jun 15, 2020 14:45
--- NOTE | 2020-06-15 14:49 | Cardiology Report ---
APPROVED REPORT EXAM: Two-dimensional and M-mode echocardiogram with Doppler and color Doppler. INDICATION Angina pectoris M-Mode DIMENSIONS IVSd1.3 (0.7-1.1cm)Left Atrium (MM)3.6 (1.6-4.0cm) LVDd4.6 (3.5-5.6cm)Aortic Root3.1 (2.0-3.7cm) PWd1.5 (0.7-1.1cm)Aortic Cusp Exc.2.1 (1.5-2.0cm) IVSs1.8 cmEPSS0.9 (>1.0cm) LVDs3.0 (2.5-4.0cm) PWs1.8 cm <Conclusion> Normal left ventricular chamber size, systolic function and wall motion to extent visualized. Left ventricular ejection fraction estimated to be 60 %. Concentric left ventricular hypertrophy by 2-D. Echogenic material is suspected at mitral valve annulus. Mild circumferential pericardial effusion, without evidence of tamponade. Left atrial size at upper limits of normal. Mild right atrial enlargement. Mild right ventricular chamber size enlargement. Focal aortic valve sclerosis with adequate cusp excursion. Thickened mitral valve leaflets with normal excursion. Moderate mitral annulus and mild aortic root calcification. Pulmonic valve not well visualized. Normal tricuspid valve structure. IVC at normal size with slightly collapse. A color flow and spectral Doppler study was performed and revealed: Mild aortic insufficiency. Mitral diastolic velocities of E & A equalization & Tissue Doppler Imaging suggest mildly reduced left ventricular relaxation c/w impaired relaxation diastolic dysfunction. Mild to moderate mitral regurgitation. Moderate to severe, tricuspid regurgitation. Tricuspid systolic velocities suggests peak right ventricular systolic pressure of 67 mmHg, consistent with severe pulmonary hypertension. Pulmonic regurgitation present.
--- NOTE | 2020-06-15 14:55 | Cardiology Report ---
APPROVED REPORT EKG Measurement Heart [id number] <Conclusion> Normal sinus rhythm Right superior axis deviation T wave abnormality, consider inferior ischemia T wave abnormality, consider anterolateral ischemia Prolonged QT Abnormal ECG
--- NOTE | 2020-06-15 14:58 | Cardiology Report ---
APPROVED REPORT EKG Measurement Heart [id number] <Conclusion> Normal sinus rhythm Right superior axis deviation Pulmonary disease pattern Prolonged QT Abnormal ECG
[2020-06-15] MEDS ORDERED: Lexiscan 0.4mg/5ml syringe IV PRN (15:00)
--- NOTE | 2020-06-15 15:42 | Nephrology Progress Note ---
Assessment/Plan Plan #ESRD on HD #Elevated troponin #NSTEMI #HTN #volume overload - HD today - heparin drip - serial trop - 2d echo - cardiology eval - continue coreg - monitor lytes - BP control - losartan 100mg daily - nifedipine 90 daily - asa - statin Tiime spent 65 min Subjective ROS Limited/Unobtainable: No Constitutional: Reports: weakness HEENT: Denies: no symptoms, eye pain, blurred vision, tearing, double vision, ear pain, ear discharge, nose pain, nose congestion, throat pain, throat swelling, mouth pain, mouth swelling, other Genitourinary: Denies: no symptoms, burning, discharge, frequency, flank pain, hematuria, incontinence, pain, urgency, other Neurologic/Psychiatric: Denies: no symptoms, anxiety, depressed, emotional problems, headache, numbness, paresthesia, pre-existing deficit, seizure, tingling, tremors, weakness, other Subjective no chest pain troponin downtrending on heparin drip HD today Objective Objective Last 24 Hour Vital Signs Date Time Temp Pulse Resp B/P (MAP) Pulse Ox O2 Delivery O2 Flow Rate FiO2 06/15/20 14:35 190/90 06/15/20 12:00 Nasal Cannula 1.0 06/15/20 12:00 66 06/15/20 12:00 97.7 66 20 174/83 (113) 93 06/15/20 08:58 66 144/72 06/15/20 08:00 64 06/15/20 08:00 Nasal Cannula 1.0 06/15/20 08:00 97.3 66 18 144/72 (96) 93 06/15/20 06:00 97.9 66 20 127/69 (88) 93 06/15/20 04:00 Nasal Cannula 1.0 06/15/20 04:00 66 06/15/20 00:00 67 06/15/20 00:00 97.9 66 20 131/64 (86) 92 06/15/20 00:00 Nasal Cannula 1.0 06/14/20 20:31 69 139/76 06/14/20 20:00 Nasal Cannula 1.0 06/14/20 20:00 68 06/14/20 20:00 98.1 69 20 139/76 (97) 94 06/14/20 16:16 97.2 64 20 129/70 (89) 93 06/14/20 16:15 Nasal Cannula 1.0 06/14/20 16:09 70 Intake and Output 06/14/20 06/15/20 19:00 07:00 Intake Total 1007.516 ml 999.736 ml Output Total 1100 ml Balance 1007.516 ml -100.264 ml Intake Oral 740 ml 750 ml IV Total 267.516 ml 249.736 ml Output Urine Total 1100 ml # Bowel Movements 2 Laboratory Tests 06/14/20 17:30: Activated Partial Thromboplast Time 99H 06/15/20 00:20: Activated Partial Thromboplast Time 60H 06/15/20 04:00: White Blood Count 7.0, Red Blood Count 2.73L, Hemoglobin 8.2L, Hematocrit 25.9L, Mean Corpuscular Volume 95, Mean Corpuscular Hemoglobin 30.1, Mean Corpuscular Hemoglobin Concent 31.7L, Red Cell Distribution Width 13.9, Platelet Count 144L, Mean Platelet Volume 7.6, Neutrophils (%) (Auto) 65.0, Lymphocytes (%) (Auto) 21.2, Monocytes (%) (Auto) 10.4H, Eosinophils (%) (Auto) 2.4, Basophils (%) (Auto) 1.0, Sodium Level 144, Potassium Level 4.0, Chloride Level 104, Carbon Dioxide Level 29, Anion Gap 11, Blood Urea Nitrogen 64H, Creatinine 11.1H, Estimat Glomerular Filtration Rate 4.8, Glucose Level 79, Calcium Level 7.6L, Phosphorus Level 4.5, Magnesium Level 2.7H, Troponin I 2.114H 06/15/20 07:44: Activated Partial Thromboplast Time 104H Height (Feet): 5 Height (Inches): 6.00 Weight (Pounds): 168 General Appearance: no apparent distress, alert EENT: PERRL/EOMI, normal ENT inspection Neck: non-tender, normal alignment Cardiovascular: normal peripheral pulses, normal rate, regular rhythm Respiratory/Chest: chest wall non-tender, lungs clear Abdomen: normal bowel sounds, non tender Extremities: normal range of motion Deborah Drake M.D. Jun 15, 2020 15:42
--- NOTE | 2020-06-15 15:52 | NUR ---
INSURANCE CLINICALS/REVIEW FAXED TO [facility]#[phone] fax# [phone]
[2020-06-15 16:00] VITALS: BP_SYST 165; BP_SYST 190; BP_DIAS 83; BP_DIAS 86
--- NOTE | 2020-06-15 19:17 | NUR ---
NURSE HAND-OFF REPORT: Important Events on Shift:None Patient Status: none Diet: Renal Diet Pending Orders: N Pending Results/Labs:N Pending MD notification:N Latest Vital Signs: Temperature 97.8 , Pulse 66 , B/P 188 /81 , Respiratory Rate 20 , O2 SAT 93 , Room Air, O2 Flow Rate 1.0 . Vital Sign Comment: elevated blood pressure EKG Rhythm: Sinus Rhythm Rhythm change?: N MD Notified?: - MD Response: Latest Pimentel Fall Score: 35 Fall Risk: Medium Risk Safety Measures: Call light Within Reach, Bed Alarm Zone 1, Side Rails Side Rails x1, Bed position Low and Locked. Fall Precautions: Yellow Socks Door Sign Patient Fall Education Report given to CHRSITI PATEL.
--- NOTE | 2020-06-15 19:20 | NUR ---
NURSE NOTES: Received report from CHRISTI Rain. Patient awake in bed, alert x 4 and oriented, afebrile and no respiratory distress noted. Pt able to communicate and verbalized that he wants to sleep. On RA saturating at 100%. With right upper chest permacath. no bleeding, dressing is dry and new. With left hand 20g Iv line intact, patent and asymptomatic. Needs were attended. Call light within reach. HD done today 2L out. Bed rails are up and wheels are locked. Continue plan of care.
[2020-06-15 20:00] VITALS: BP 177/82
[2020-06-15] MEDS ORDERED: Carvedilol 6.25mg Tab ONE (20:21)
[2020-06-15] MEDS: Atorvastatin 80mg tab ORAL SCH (20:21)
[2020-06-16] VITALS: BP 173/77
--- NOTE | 2020-06-16 00:30 | NUR ---
NURSE NOTES: Pt was asleep in bed. BP PRN medication given. Health education about side effects given. Pt understood the health teaching. Pt verbalized he will go back to sleep. Gown is changed, Pt tolerated well. Call light within reach. Continue plan of care.
[2020-06-16 04:00] VITALS: BP 187/86
[2020-06-16 05:41] LABS: BASOPHILS % (AUTO) 0.8 % (0.0-2.0); EOSINOPHILS % (AUTO) 1.9 % (0.0-3.0); HEMATOCRIT 26.1 % (42.0-52.0); HEMOGLOBIN 8.2 G/DL (14.2-18.0); LYMPHOCYTES % (AUTO) 15.8 % (20.0-45.0); MEAN CORPUSCULAR VOLUME 96 FL (80-99); MONOCYTES % (AUTO) 8.7 % (1.0-10.0); NEUTROPHILS % (AUTO) 72.8 % (45.0-75.0); PLATELET COUNT 110 K/UL (150-450); RED BLOOD COUNT 2.73 M/UL (4.70-6.10); RED CELL DISTRIBUTION WIDTH 13.4 % (11.6-14.8)
[2020-06-16 06:05] LABS: CALCIUM 7.6 MG/DL (8.5-10.1); CREATININE 9.6 MG/DL (0.55-1.30); PHOSPHORUS 4.3 MG/DL (2.5-4.9); POTASSIUM 3.9 MMOL/L (3.5-5.1)
--- NOTE | 2020-06-16 06:10 | NUR ---
NURSE NOTES: Pt asleep in bed. Needs were attended. No complaints or discomforts verbalized. continue to monitor the patient
--- NOTE | 2020-06-16 07:15 | NUR ---
NURSE HAND-OFF REPORT: Important Events on Shift: high blood pressure Patient Status: stable Diet: renal diet Pending Orders: n Pending Results/Labs:n Pending MD notification:n Latest Vital Signs: Temperature 97.9 , Pulse 59 , B/P 187 /86 , Respiratory Rate 18 , O2 SAT 100 , Room Air, O2 Flow Rate 1.0 . Vital Sign Comment:n EKG Rhythm: Sinus Rhythm Rhythm change?: N MD Notified?: - MD Response: Latest Pimentel Fall Score: 35 Fall Risk: Medium Risk Safety Measures: Call light Within Reach, Bed Alarm Zone 1, Side Rails Side Rails x1, Bed position Low and Locked. Fall Precautions: Yellow Socks Door Sign Patient Fall Education Report given to CHRISTI Reyes. PT stable in bed.
--- NOTE | 2020-06-16 07:20 | NUR ---
NURSE NOTES: Received patient report from Faith PATEL. Patient is AOx4, in bed asleep at this time. Patient on RA breathing is even and unlabored at this time. No pain or discomfort noted at this time. Patient with L hand 20G IV, patent and intact. Bed in lowest position, locked with side rails x2 up. Call light within reach.
[2020-06-16 08:00] VITALS: BP 186/77
[2020-06-16] MEDS: Aspirin EC 81mg tab ORAL SCH (08:42)
[2020-06-16] MEDS: Losartan 50mg tab ORAL SCH (08:43)
[2020-06-16] MEDS: Carvedilol 12.5mg tab ORAL SCH (08:44)
[2020-06-16] MEDS: Tamsulosin 0.4mg cap ORAL SCH (08:45)
[2020-06-16] MEDS: Imdur 30mg tab ORAL SCH (08:45)
--- NOTE | 2020-06-16 09:35 | Nephrology Progress Note ---
Assessment/Plan Plan #ESRD on HD #Elevated troponin #NSTEMI #HTN #volume overload - HD tomorrow - DC heparin drip - plan for stress test - serial trop - 2d echo - cardiology eval - continue coreg - monitor lytes - BP control - losartan 100mg daily - nifedipine 90 daily - asa - statin Tiime spent 65 min Subjective ROS Limited/Unobtainable: No Constitutional: Reports: weakness HEENT: Denies: no symptoms, eye pain, blurred vision, tearing, double vision, ear pain, ear discharge, nose pain, nose congestion, throat pain, throat swelling, mouth pain, mouth swelling, other Genitourinary: Denies: no symptoms, burning, discharge, frequency, flank pain, hematuria, incontinence, pain, urgency, other Neurologic/Psychiatric: Denies: no symptoms, anxiety, depressed, emotional problems, headache, numbness, paresthesia, pre-existing deficit, seizure, tingling, tremors, weakness, other Subjective no chest pain troponin downtrending heparin drip stopped s/p HD tomorrow plan for stress test Objective Objective Last 24 Hour Vital Signs Date Time Temp Pulse Resp B/P (MAP) Pulse Ox O2 Delivery O2 Flow Rate FiO2 06/16/20 08:45 186/77 06/16/20 08:45 63 186/77 06/16/20 08:44 63 186/77 06/16/20 08:43 186/77 06/16/20 08:40 60 06/16/20 08:00 97.7 64 20 186/77 (113) 98 06/16/20 05:02 187/86 06/16/20 04:00 97.9 59 18 187/86 (119) 100 06/16/20 04:00 Nasal Cannula 1.0 06/16/20 03:16 62 06/16/20 00:24 173/77 06/16/20 00:00 98.1 61 17 173/77 (109) 100 06/16/20 00:00 Nasal Cannula 1.0 06/15/20 23:01 65 06/15/20 21:22 179/89 06/15/20 20:21 63 177/82 06/15/20 20:00 Nasal Cannula 1.0 06/15/20 20:00 98.7 63 18 177/82 (113) 100 06/15/20 19:10 58 06/15/20 18:31 188/81 06/15/20 16:26 185/81 06/15/20 16:00 97.8 66 20 190/86 (120) 93 06/15/20 16:00 59 06/15/20 16:00 Nasal Cannula 1.0 06/15/20 14:35 190/90 06/15/20 12:00 Nasal Cannula 1.0 06/15/20 12:00 66 06/15/20 12:00 97.7 66 20 174/83 (113) 93 Intake and Output 06/15/20 06/16/20 19:00 07:00 Intake Total 202.672 ml 250 ml Output Total 2000 ml Balance -1797.328 ml 250 ml Intake Oral 100 ml 250 ml IV Total 102.672 ml Hemodialysis UF 2000 ml # Voids 2 # Bowel Movements 4 Laboratory Tests 06/15/20 15:40: Activated Partial Thromboplast Time 48H 06/16/20 04:35: White Blood Count 7.0, Red Blood Count 2.73L, Hemoglobin 8.2L, Hematocrit 26.1L, Mean Corpuscular Volume 96, Mean Corpuscular Hemoglobin 29.9, Mean Corpuscular Hemoglobin Concent 31.2L, Red Cell Distribution Width 13.4, Platelet Count 110L, Mean Platelet Volume 6.7, Neutrophils (%) (Auto) 72.8, Lymphocytes (%) (Auto) 15.8L, Monocytes (%) (Auto) 8.7, Eosinophils (%) (Auto) 1.9, Basophils (%) (Auto) 0.8, Sodium Level 143, Potassium Level 3.9, Chloride Level 107, Carbon Dioxide Level 26, Anion Gap 10, Blood Urea Nitrogen 51H, Creatinine 9.6H, Estimat Glomerular Filtration Rate 5.6, Glucose Level 85, Calcium Level 7.6L, Phosphorus Level 4.3, Magnesium Level 2.2 Height (Feet): 5 Height (Inches): 6.00 Weight (Pounds): 168 General Appearance: no apparent distress, alert EENT: PERRL/EOMI, normal ENT inspection Neck: non-tender, normal alignment, supple Cardiovascular: normal peripheral pulses, normal rate, regular rhythm Respiratory/Chest: chest wall non-tender, lungs clear Abdomen: normal bowel sounds, non tender Extremities: normal range of motion, non-tender Neurologic: alert, oriented x 3 Deborah Drake M.D. Jun 16, 2020 09:35
--- NOTE | 2020-06-16 10:13 | Cardiac Electrophysiology PN ---
Assessment/Plan Assessment/Plan 1. Elevated troponin more than 2 in this patient with history of hypertension. The patient however is on hemodialysis. EF 60%. EKG shows sinus rhythm with lateral T-wave inversion. On Lipitor 80 mg daily, Imdur 30 mg daily, aspirin 81 mg daily, and Coreg 12.5 mg b.i.d. DCed heparin drip as Troponin was down. Stress test pending today 2. Hypertension. Continue Coreg, Isordil, losartan 100 mg daily, Procardia XL 90 mg daily and HD 3. Volume overload with congestive heart failure. Echocardiogram showed normal ejection fraction. 4. End-stage renal disease, on hemodialysis per Dr. Vikas MCHUGH RN Subjective Subjective Being ruled out for Covid on 2 liter NC. Troponin down to 2.1. On heparin drip. No CP. Had 2 liter HD yesterday Stress test pending today if Covid negative Objective Last 24 Hour Vital Signs Date Time Temp Pulse Resp B/P (MAP) Pulse Ox O2 Delivery O2 Flow Rate FiO2 06/16/20 08:45 186/77 06/16/20 08:45 63 186/77 06/16/20 08:44 63 186/77 06/16/20 08:43 186/77 06/16/20 08:40 60 06/16/20 08:00 97.7 64 20 186/77 (113) 98 06/16/20 08:00 Nasal Cannula 1.0 06/16/20 05:02 187/86 06/16/20 04:00 97.9 59 18 187/86 (119) 100 06/16/20 04:00 Nasal Cannula 1.0 06/16/20 03:16 62 06/16/20 00:24 173/77 06/16/20 00:00 98.1 61 17 173/77 (109) 100 06/16/20 00:00 Nasal Cannula 1.0 06/15/20 23:01 65 06/15/20 21:22 179/89 06/15/20 20:21 63 177/82 06/15/20 20:00 Nasal Cannula 1.0 06/15/20 20:00 98.7 63 18 177/82 (113) 100 06/15/20 19:10 58 06/15/20 18:31 188/81 06/15/20 16:26 185/81 06/15/20 16:00 97.8 66 20 190/86 (120) 93 06/15/20 16:00 59 06/15/20 16:00 Nasal Cannula 1.0 06/15/20 14:35 190/90 06/15/20 12:00 Nasal Cannula 1.0 06/15/20 12:00 66 06/15/20 12:00 97.7 66 20 174/83 (113) 93 Intake and Output 06/15/20 06/16/20 19:00 07:00 Intake Total 202.672 ml 250 ml Output Total 2000 ml Balance -1797.328 ml 250 ml Intake Oral 100 ml 250 ml IV Total 102.672 ml Hemodialysis UF 2000 ml # Voids 2 # Bowel Movements 4 Laboratory Tests Test 06/15/20 15:40 06/16/20 04:35 Activated Partial Thromboplast Time 48 SEC (23-33) H White Blood Count 7.0 K/UL (4.8-10.8) Red Blood Count 2.73 M/UL (4.70-6.10) L Hemoglobin 8.2 G/DL (14.2-18.0) L Hematocrit 26.1 % (42.0-52.0) L Mean Corpuscular Volume 96 FL (80-99) Mean Corpuscular Hemoglobin 29.9 PG (27.0-31.0) Mean Corpuscular Hemoglobin Concent 31.2 G/DL (32.0-36.0) L Red Cell Distribution Width 13.4 % (11.6-14.8) Platelet Count 110 K/UL (150-450) L Mean Platelet Volume 6.7 FL (6.5-10.1) Neutrophils (%) (Auto) 72.8 % (45.0-75.0) Lymphocytes (%) (Auto) 15.8 % (20.0-45.0) L Monocytes (%) (Auto) 8.7 % (1.0-10.0) Eosinophils (%) (Auto) 1.9 % (0.0-3.0) Basophils (%) (Auto) 0.8 % (0.0-2.0) Sodium Level 143 MMOL/L (136-145) Potassium Level 3.9 MMOL/L (3.5-5.1) Chloride Level 107 MMOL/L (98-107) Carbon Dioxide Level 26 MMOL/L (21-32) Anion Gap 10 mmol/L (5-15) Blood Urea Nitrogen 51 mg/dL (7-18) H Creatinine 9.6 MG/DL (0.55-1.30) H Estimat Glomerular Filtration Rate 5.6 mL/min (>60) Glucose Level 85 MG/DL (74-106) Calcium Level 7.6 MG/DL (8.5-10.1) L Phosphorus Level 4.3 MG/DL (2.5-4.9) Magnesium Level 2.2 MG/DL (1.8-2.4) Microbiology Date/Time Source Procedure Growth Status 06/13/20 12:21 Rectum VRE Culture - Final NO VANCOMYCIN RESISTANT ENTEROCOCCUS ... Complete 06/13/20 12:21 Nasal Nares MRSA Culture - Final NO METHICILLIN RESISTANT STAPH AUREUS... Complete Objective HEAD AND NECK: No JVD. LUNGS: Coarse rhonchi. CARDIOVASCULAR: Regular S1 and S2 with no gallop. ABDOMEN: Soft. EXTREMITIES: No pitting edema. Imtiaz Roblero MD Jun 16, 2020 10:13
--- NOTE | 2020-06-16 10:16 | Cardiac Electrophysiology PN ---
Assessment/Plan Assessment/Plan 1. Elevated troponin more than 2 in this patient with history of hypertension. The patient however is on hemodialysis. EF 60%. EKG shows sinus rhythm with lateral T-wave inversion. On Lipitor 80 mg daily, Imdur 30 mg daily, aspirin 81 mg daily, and Coreg 12.5 mg b.i.d. DCed heparin drip as Troponin was down. Stress test pending today 2. Hypertension. Increase Coreg to 25 bid, Isordil, losartan 100 mg daily, increase Procardia to 60 bid and HD 3. Volume overload with congestive heart failure. Echocardiogram showed normal ejection fraction. 4. End-stage renal disease, on hemodialysis per Dr. Vikas MCHUGH RN Subjective Subjective Being ruled out for Covid on 2 liter NC. Troponin down to 2.1. On heparin drip. No CP. Had 2 liter HD yesterday Stress test pending today if Covid negative. BP still 180s Objective Last 24 Hour Vital Signs Date Time Temp Pulse Resp B/P (MAP) Pulse Ox O2 Delivery O2 Flow Rate FiO2 06/16/20 08:45 186/77 06/16/20 08:45 63 186/77 06/16/20 08:44 63 186/77 06/16/20 08:43 186/77 06/16/20 08:40 60 06/16/20 08:00 97.7 64 20 186/77 (113) 98 06/16/20 08:00 Nasal Cannula 1.0 06/16/20 05:02 187/86 06/16/20 04:00 97.9 59 18 187/86 (119) 100 06/16/20 04:00 Nasal Cannula 1.0 06/16/20 03:16 62 06/16/20 00:24 173/77 06/16/20 00:00 98.1 61 17 173/77 (109) 100 06/16/20 00:00 Nasal Cannula 1.0 06/15/20 23:01 65 06/15/20 21:22 179/89 06/15/20 20:21 63 177/82 06/15/20 20:00 Nasal Cannula 1.0 06/15/20 20:00 98.7 63 18 177/82 (113) 100 06/15/20 19:10 58 06/15/20 18:31 188/81 06/15/20 16:26 185/81 06/15/20 16:00 97.8 66 20 190/86 (120) 93 06/15/20 16:00 59 06/15/20 16:00 Nasal Cannula 1.0 06/15/20 14:35 190/90 06/15/20 12:00 Nasal Cannula 1.0 06/15/20 12:00 66 06/15/20 12:00 97.7 66 20 174/83 (113) 93 Intake and Output 06/15/20 06/16/20 19:00 07:00 Intake Total 202.672 ml 250 ml Output Total 2000 ml Balance -1797.328 ml 250 ml Intake Oral 100 ml 250 ml IV Total 102.672 ml Hemodialysis UF 2000 ml # Voids 2 # Bowel Movements 4 Laboratory Tests Test 06/15/20 15:40 06/16/20 04:35 Activated Partial Thromboplast Time 48 SEC (23-33) H White Blood Count 7.0 K/UL (4.8-10.8) Red Blood Count 2.73 M/UL (4.70-6.10) L Hemoglobin 8.2 G/DL (14.2-18.0) L Hematocrit 26.1 % (42.0-52.0) L Mean Corpuscular Volume 96 FL (80-99) Mean Corpuscular Hemoglobin 29.9 PG (27.0-31.0) Mean Corpuscular Hemoglobin Concent 31.2 G/DL (32.0-36.0) L Red Cell Distribution Width 13.4 % (11.6-14.8) Platelet Count 110 K/UL (150-450) L Mean Platelet Volume 6.7 FL (6.5-10.1) Neutrophils (%) (Auto) 72.8 % (45.0-75.0) Lymphocytes (%) (Auto) 15.8 % (20.0-45.0) L Monocytes (%) (Auto) 8.7 % (1.0-10.0) Eosinophils (%) (Auto) 1.9 % (0.0-3.0) Basophils (%) (Auto) 0.8 % (0.0-2.0) Sodium Level 143 MMOL/L (136-145) Potassium Level 3.9 MMOL/L (3.5-5.1) Chloride Level 107 MMOL/L (98-107) Carbon Dioxide Level 26 MMOL/L (21-32) Anion Gap 10 mmol/L (5-15) Blood Urea Nitrogen 51 mg/dL (7-18) H Creatinine 9.6 MG/DL (0.55-1.30) H Estimat Glomerular Filtration Rate 5.6 mL/min (>60) Glucose Level 85 MG/DL (74-106) Calcium Level 7.6 MG/DL (8.5-10.1) L Phosphorus Level 4.3 MG/DL (2.5-4.9) Magnesium Level 2.2 MG/DL (1.8-2.4) Microbiology Date/Time Source Procedure Growth Status 06/13/20 12:21 Rectum VRE Culture - Final NO VANCOMYCIN RESISTANT ENTEROCOCCUS ... Complete 06/13/20 12:21 Nasal Nares MRSA Culture - Final NO METHICILLIN RESISTANT STAPH AUREUS... Complete Objective HEAD AND NECK: No JVD. LUNGS: Coarse rhonchi. CARDIOVASCULAR: Regular S1 and S2 with no gallop. ABDOMEN: Soft. EXTREMITIES: No pitting edema. Imtiaz Roblero MD Jun 16, 2020 10:16
[2020-06-16] MEDS ORDERED: Imdur 30mg tab ORAL SCH (10:30)
[2020-06-16] MEDS ORDERED: Carvedilol 12.5mg tab ORAL SCH (11:00)
--- NOTE | 2020-06-16 11:45 | NUR ---
RD ASSESSMENT & RECOMMENDATIONS SEE CARE ACTIVITY FOR COMPLETE ASSESSMENT DAILY ESTIMATED NEEDS: Needs based on ESRD on HD, 68kg abw 30-35 kcals/kg 5631-4496 total kcals 1.2-1.8 g protein/kg 82-122 g total protein Fluid per MD, on HD NUTRITION DIAGNOSIS: Increased kcal and pro needs r/t renal dysfunction as evidenced by pt w/ ESRD on HD CURRENT DIET: Renal PO DIET RECOMMENDATIONS: Maintain RENAL DIET ADDITIONAL RECOMMENDATIONS: 1) Variable po intake, add high pro snacks Add Nepro 1 tetra BID 2) Obtain calibrated bed scale wts
[2020-06-16 12:00] VITALS: BP 136/63
--- NOTE | 2020-06-16 12:34 | NUR ---
CASE MANAGEMENT:REVIEW 06/16/20 SI: RESPIRATORY DISTRESS. AFIB NSTEMI. FLUID OVERLOAD 97.7 64 20 186/77 98% ON 1L/NC H/H-8.2/26.1 PLT-100 BUN+51 CR+9.6 IS: IMDUR PO QD COREG PO Q12 PROCARDIA PO BID COZAAR PO QD ASA PO QD FLOMAX PO QD : STEP DOWN UNIT DCP: FROM HOME PLAN: HD FOR TODAY
--- NOTE | 2020-06-16 14:16 | NUR ---
INSURANCE CLINICALS/REVIEW FAXED TO [facility]#[phone] fax# [phone]
[2020-06-16 16:00] VITALS: BP 133/67
--- NOTE | 2020-06-16 19:20 | NUR ---
NURSE HAND-OFF REPORT: Important Events on Shift:NA Patient Status: Stable Diet: Renal Diet Pending Orders: NA Pending Results/Labs:NA Pending MD notification:NA Latest Vital Signs: Temperature 97.7 , Pulse 61 , B/P 133 /67 , Respiratory Rate 20 , O2 SAT 97 , Room Air, O2 Flow Rate 1.0 . Vital Sign Comment: Stable EKG Rhythm: Sinus Rhythm Rhythm change?: N MD Notified?: - MD Response: Latest Pimentel Fall Score: 35 Fall Risk: Medium Risk Safety Measures: Call light Within Reach, Bed Alarm Zone 1, Side Rails Side Rails x1, Bed position Low and Locked. Fall Precautions: Yellow Socks Door Sign Patient Fall Education Report given to CHRISTI Henriquez.
--- NOTE | 2020-06-16 19:31 | NUR ---
NURSE NOTES: Report received from CHRISTI Edwards. Observed pt lying in the bed, awake, denies any pain at this time. SR noted. On room air with no sob noted. NPO after midnight noted. No acute distress noted at this time. IV on L H 20G, intact. R Upper chest perma cath noted. HD scheduled 06/17 noted. Bed in the lowest position. Side rails up x3. Call light within reach. Will continue to monitor.
[2020-06-16 20:00] VITALS: BP 141/71
[2020-06-16] MEDS: Atorvastatin 80mg tab ORAL SCH (20:37)
[2020-06-16] MEDS: Carvedilol 25mg Tab ORAL SCH (20:37)
[2020-06-17] VITALS: BP 134/62
--- NOTE | 2020-06-17 00:42 | NUR ---
NURSE NOTES: Noted pt saturating at 90%. Applied NC 2L, sat at 94% at this time. No other distress noted. Will continue to monitor.
[2020-06-17 04:00] VITALS: BP 129/56
[2020-06-17 04:56] LABS: CALCIUM 7.9 MG/DL (8.5-10.1); CREATININE 11.1 MG/DL (0.55-1.30); PHOSPHORUS 5.7 MG/DL (2.5-4.9); POTASSIUM 4.2 MMOL/L (3.5-5.1)
--- NOTE | 2020-06-17 07:30 | NUR ---
NURSE HAND-OFF REPORT: Important Events on Shift:[] Patient Status: [] Diet: [] Pending Orders: [] Pending Results/Labs:[] Pending MD notification:[] Latest Vital Signs: Temperature 98.4 , Pulse 61 , B/P 129 /56 , Respiratory Rate 24 , O2 SAT 93 , Room Air, O2 Flow Rate 1.0 . Vital Sign Comment: [] EKG Rhythm: Sinus Rhythm Rhythm change?: N MD Notified?: - MD Response: Latest Pimentel Fall Score: 35 Fall Risk: Medium Risk Safety Measures: Call light Within Reach, Bed Alarm Zone 1, Side Rails Side Rails x1, Bed position Low and Locked. Fall Precautions: Yellow Socks Door Sign Patient Fall Education Report given to [].
--- NOTE | 2020-06-17 07:30 | NUR ---
NURSE HAND-OFF REPORT: Important Events on Shift: NPO after midnight. Episode of desaturating on room air, now on nc 2L Patient Status: stable Diet: renal diet Pending Orders: nabila scan. Pending Results/Labs:[] Pending MD notification:[] Latest Vital Signs: Temperature 98.4 , Pulse 61 , B/P 129 /56 , Respiratory Rate 24 , O2 SAT 93 , Room Air, O2 Flow Rate 1.0 . Vital Sign Comment: [] EKG Rhythm: Sinus Rhythm Rhythm change?: N MD Notified?: - MD Response: Latest Pimentel Fall Score: 35 Fall Risk: Medium Risk Safety Measures: Call light Within Reach, Bed Alarm Zone 1, Side Rails Side Rails x1, Bed position Low and Locked. Fall Precautions: Yellow Socks Door Sign Patient Fall Education Report given to CHRISTI Albright.
--- NOTE | 2020-06-17 07:49 | NUR ---
NURSE NOTES: Pt received from Martinez BARRAZA. Pt in bed sleeping. no distress or SOB noted. Removed isolation precautions as he is now negative for C19. Bed low and locked, call light within reach.
[2020-06-17 08:00] VITALS: BP 144/73
--- NOTE | 2020-06-17 08:58 | NUR ---
NURSE NOTES: Per pt, he had a lexiscan 1 year ago and had a strong reaction to lexiscan medication including nausea, diarrhea, and progression of his CKD. Contacted Dr. Roblero to clarify order. waiting for response. Addendum: 06/17/20 at 0939 by Natalee Rose RN Discussed issue with Dr. Roblero at bedside. Dr. Roblero explained importance of procedure and that it will not affect kidney. Pt states he does not want to go forward with scan.
[2020-06-17] MEDS ORDERED: Imdur 30mg tab ORAL SCH (09:00)
--- NOTE | 2020-06-17 09:22 | Nephrology Progress Note ---
Assessment/Plan Plan #ESRD on HD #Elevated troponin #NSTEMI #HTN #volume overload - HD tomorrow - DC heparin drip - plan for stress test - serial trop - 2d echo - cardiology eval - continue coreg - monitor lytes - BP control - losartan 100mg daily - nifedipine 90 daily - asa - statin Tiime spent 65 min Subjective Subjective no chest pain troponin downtrending heparin drip stopped s/p HD tomorrow plan for stress test Objective Objective Last 24 Hour Vital Signs Date Time Temp Pulse Resp B/P (MAP) Pulse Ox O2 Delivery O2 Flow Rate FiO2 06/17/20 04:00 98.4 61 24 129/56 (80) 93 06/17/20 04:00 Room Air 06/17/20 04:00 61 06/17/20 00:00 98.5 60 24 134/62 (86) 92 06/17/20 00:00 64 06/17/20 00:00 Room Air 06/16/20 20:37 61 145/85 06/16/20 20:00 57 06/16/20 20:00 97.9 59 20 141/71 (94) 97 06/16/20 20:00 Nasal Cannula 1.0 06/16/20 17:41 61 133/67 06/16/20 16:00 Nasal Cannula 1.0 06/16/20 16:00 61 06/16/20 16:00 97.7 61 20 133/67 (89) 97 06/16/20 12:27 65 06/16/20 12:00 Nasal Cannula 1.0 06/16/20 12:00 97.5 63 20 136/63 (87) 95 06/16/20 11:20 67 180/80 06/16/20 10:44 180/80 Intake and Output 06/16/20 06/17/20 19:00 07:00 Intake Total 540 ml 400 ml Balance 540 ml 400 ml Intake Oral 540 ml 400 ml # Voids 3 2 # Bowel Movements 5 1 Laboratory Tests 06/17/20 03:05: Sodium Level 140, Potassium Level 4.2, Chloride Level 104, Carbon Dioxide Level 25, Anion Gap 11, Blood Urea Nitrogen 63H, Creatinine 11.1H, Estimat Glomerular Filtration Rate 4.8, Glucose Level 92, Calcium Level 7.9L, Phosphorus Level 5.7H , Magnesium Level 2.5H Height (Feet): 5 Height (Inches): 6.00 Weight (Pounds): 168 Deborah Drake M.D. Jun 17, 2020 09:22
--- NOTE | 2020-06-17 10:33 | Cardiac Electrophysiology PN ---
Assessment/Plan Assessment/Plan 1. Elevated troponin more than 2 in this patient with history of hypertension. The patient however is on hemodialysis. EF 60%. EKG shows sinus rhythm with lateral T-wave inversion. On Lipitor 80 mg daily, Imdur 30 mg daily, aspirin 81 mg daily, and Coreg 12.5 mg b.i.d. DCed heparin drip as Troponin was down. Stress test scheduled for today but patient refusing. Says had stress test before and had allergic reaction and it was negative! 2. Hypertension. Better on Coreg 25 bid, Isordil, losartan 100 mg daily, Procardia 60 bid and HD 3. Volume overload with congestive heart failure. Echocardiogram showed normal ejection fraction. 4. End-stage renal disease, on hemodialysis per Dr. Vikas MCHUGH RN Subjective Subjective Ruled out for Covid on 2 liter NC. Troponin down to 2.1. No CP. Getting HD Stress test scheduled for today but he is refusing. RN at bedside Objective Last 24 Hour Vital Signs Date Time Temp Pulse Resp B/P (MAP) Pulse Ox O2 Delivery O2 Flow Rate FiO2 06/17/20 08:00 97.2 63 21 144/73 (96) 92 06/17/20 04:00 98.4 61 24 129/56 (80) 93 06/17/20 04:00 Room Air 06/17/20 04:00 61 06/17/20 00:00 98.5 60 24 134/62 (86) 92 06/17/20 00:00 64 06/17/20 00:00 Room Air 06/16/20 20:37 61 145/85 06/16/20 20:00 57 06/16/20 20:00 97.9 59 20 141/71 (94) 97 06/16/20 20:00 Nasal Cannula 1.0 06/16/20 17:41 61 133/67 06/16/20 16:00 Nasal Cannula 1.0 06/16/20 16:00 61 06/16/20 16:00 97.7 61 20 133/67 (89) 97 06/16/20 12:27 65 06/16/20 12:00 Nasal Cannula 1.0 06/16/20 12:00 97.5 63 20 136/63 (87) 95 06/16/20 11:20 67 180/80 06/16/20 10:44 180/80 Intake and Output 06/16/20 06/17/20 19:00 07:00 Intake Total 540 ml 400 ml Balance 540 ml 400 ml Intake Oral 540 ml 400 ml # Voids 3 2 # Bowel Movements 5 1 Laboratory Tests Test 06/17/20 03:05 Sodium Level 140 MMOL/L (136-145) Potassium Level 4.2 MMOL/L (3.5-5.1) Chloride Level 104 MMOL/L (98-107) Carbon Dioxide Level 25 MMOL/L (21-32) Anion Gap 11 mmol/L (5-15) Blood Urea Nitrogen 63 mg/dL (7-18) H Creatinine 11.1 MG/DL (0.55-1.30) H Estimat Glomerular Filtration Rate 4.8 mL/min (>60) Glucose Level 92 MG/DL (74-106) Calcium Level 7.9 MG/DL (8.5-10.1) L Phosphorus Level 5.7 MG/DL (2.5-4.9) H Magnesium Level 2.5 MG/DL (1.8-2.4) H Objective HEAD AND NECK: No JVD. LUNGS: Coarse rhonchi. CARDIOVASCULAR: Regular S1 and S2 with no gallop. ABDOMEN: Soft. EXTREMITIES: No pitting edema. Imtiaz Roblero MD Jun 17, 2020 10:33
[2020-06-17] MEDS: Carvedilol 25mg Tab ORAL SCH (10:43)
[2020-06-17] MEDS: Aspirin EC 81mg tab ORAL SCH (10:44)
[2020-06-17] MEDS: Tamsulosin 0.4mg cap ORAL SCH (10:44)
--- NOTE | 2020-06-17 10:44 | NUR ---
CASE MANAGEMENT:REVIEW 06/17/20 SI: RESPIRATORY DISTRESS. AFIB NSTEMI. FLUID OVERLOAD 97.2 63 21 144/73 92% ON RA BUN+63 CR+11.1 IS: IMDUR PO QD COREG PO Q12 PROCARDIA PO BID COZAAR PO QD ASA PO QD FLOMAX PO QD : STEP DOWN UNIT DCP: FROM HOME PLAN: [employer] WANTED TO DO A LEXISCAN STRESS TEST ~ PATIENT REFUSED DISCHARGE HOME TODAY
[2020-06-17 10:45] VITALS: BP 165/77
[2020-06-17] MEDS: Losartan 50mg tab ORAL SCH (10:45)
--- NOTE | 2020-06-17 12:20 | NUR ---
NURSE NOTES: Pt discharged home. Tele box removed. Wrist band cut, 2 iv lines removed. paperwork signed for including belongings. Pt walked down. Picked up by daughter law in private vehicle
--- NOTE | 2020-06-17 13:48 | NUR ---
INSURANCE CLINICALS/DC INSTRUCTIONS FAXED TO [facility]#[phone] fax# [phone]
[2020-06-17] MEDS ORDERED: Dyna-Hex 2% Top Sol 2oz TOPIC SCH (20:00)
--- NOTE | 2020-06-22 17:00 | Discharge Summary ---
Discharge Summary Discharge Summary _ Date of admission: 06/13/2020 Date of discharge: 06/17/[address] Wright History of Present Illness and Brief Hospital Course Mr. Coon is a 60-year-old male with past medical history of hypertension, and ESRD on dialysis, who presented to the ED for evaluation of worsening shortness of breath. Patient was found be in hypoxic respiratory distress and was placed on nonrebreather and subsequently on BiPAP. Patient was also given nitroglycerin sublingual with some improvement in shortness of breath. Chest x- ray showed cardiomegaly as well as dialysis access catheter with fluid in the fissure as well as vascular congestion and pulmonary edema. Infiltrates were demonstrated on the right side greater than left. Patient was also given IV Lasix and IV antibiotics. Patient was admitted to the hospital for further management. Patient was started on dialysis in the hospital. Given his presentation consistent with NSTEMI, patient was started on losartan, nifedipine, aspirin, and statin. 2D echocardiogram revealed ejection fraction of 60%. The serial troponins were elevated but patient did not have any chest pain. Given his hypertension, patient was continued on Coreg, Isordil, losartan, Procardia and hemodialysis. Patient was initially started on heparin given elevated troponin. Heparin was discontinued as troponin began trending down. Patient was scheduled for a stress test but patient refused. Patient reported that he had stress test in the past and had allergic reaction and it was negative. Patient was medically stable for discharge and was discharged home on 06/17/2020. Patient was instructed to follow-up with PCP within 1 week upon discharge. Consultants: Cardiology Dr. Roblero Nephrology Dr. Drake Discharge Condition Improved and stable Discharge diet: Renal diet Discharge activity: As tolerated Final diagnoses Hypertension Congestive heart failure, acute on chronic End-stage renal disease, on hemodialysis Non-STEMI Volume overload I have been assigned to dictate discharge summary for this account. I was not involved in the patient's management Clayton Garcia Jun 22, 2020 17:00
== END 2020-06-17 12:20 | disposition home or self-care (01) | DRG 280 ==
LOC: EDBD 07:41 → EMR 08:04 → 2W 08:51 → EDBEDREQSVC 08:58 → EDBEDREQ 08:58 → EDBEDREQSVC 10:38 → EDBEDREQ 12:01
PROC: 5A1D70Z Performance of Urinary Filtration, Intermittent, Less than 6 Hours Per Day (ICD-10-PCS; principal; 2020-06-17)
DX: I21.4 Non-ST elevation (NSTEMI) myocardial infarction (principal); N18.6 End stage renal disease; I13.2 Hypertensive heart and chronic kidney disease with heart failure and with stage 5 chronic kidney disease, or end stage renal disease; I50.9 Heart failure, unspecified; Z87.891 Personal history of nicotine dependence; Z99.2 Dependence on renal dialysis
CPT/HCPCS: 36415; 71045; 80048; 80053; 80061; 82550; 82553; 82728; 82803; 82962; 83605; 83615; 83690; 83735; 83880; 84100; 84443; 84484; 85007; 85025; 85379; 85610; 85730; 86140; 86706; 87040; 87081; 93005; 93306; 96365; 96367; 96375; 99291; J8499